=== PATIENT | female | born 1975 | race Caucasian/White ===

== ENCOUNTER 2024-04-07 09:35 | Day surgery (SDC) | payer OTHER ==
[~2024-04-07] VITALS: Ht 170.2 cm; Wt 98.5 kg
[2024-04-07] VITALS (16 sets, daily range): BP systolic 91–143; BP diastolic 64–97
[~2024-04-07 09:35] MED LIST: ERGO400 PO; GABA400 PO; LISI20 PO; Lactated Ringer's 1,000 ML IV SCH; MELATONIN5 M1 PO; Vitamin B Comple1 EA PO
[2024-04-07] MEDS ORDERED: propofoL 40 ML IV ONE (10:00)
--- NOTE | 2024-04-07 10:08 | NUR ---
04/07/24 Devika Garland CONFIRMED AND REVIEWED H&P, MEDCICATIONS, ALLERGIES, MEDICAL HISTORY, RESPIRATORY HISTORY, VITAL SIGNS, 3-LEAD EKG, CONSENTS, AND PHYSICIAN ORDERS. PATIENT CONFIRMS NPO STATUS AND AGREES WITH SCHEDULED PROCEDURE. MONITOR INTACT WITH CONTINUOUS PULSE OXIMETRY, CAPNOGRAPHY, 3-LEAD EKG, INTERMITTENT BP. SUPPLEMENTAL O2 TO BE TITRATED THROUGHOUT PROCEDURE TO MAINTAIN O2 SATURATION ABOVE 90%. PATIENT DETERMINED TO BE ASA APPROPRIATE FOR PROPOFOL SEDATION PRIOR TO START OF PROCEDURE BY DR. FRAZIER
--- NOTE | 2024-04-07 11:01 | NUR ---
Discharge instructions reviewed with patient. Patient verbalizes understanding. Copy given to patient to take home. Patient States Post-Procedure ride home has been arranged. Discharged via wheelchair to private car for ride home.
== END 2024-04-07 11:03 | disposition home or self-care (01) ==
LOC: ORSCMMR 09:35 → ORD 10:30 → ORSCMMR 11:03
PROVIDERS: Internal Medicine Gastroenterology
PROC: 0DBN8ZX Excision of Sigmoid Colon, Via Natural or Artificial Opening Endoscopic, Diagnostic (ICD-10-PCS; principal; 2024-04-07 10:30)
DX: Z12.11 Encounter for screening for malignant neoplasm of colon (principal); D12.5 Benign neoplasm of sigmoid colon; I10 Essential (primary) hypertension; Z79.899 Other long term (current) drug therapy
CPT/HCPCS: 88305; J2704; J7120

== ENCOUNTER → 2024-12-02 | Outpatient (CLI) | payer OTHER ==
[~2024-12-02] MED LIST changes: -Lactated Ringer's 1,000 ML IV SCH
== END ==
LOC: LAB SHORT 18:46 → LAB 18:46
PROVIDERS: Obstetrics & Gynecology
DX: Z01.419 Encounter for gynecological examination (general) (routine) without abnormal findings (principal)
CPT/HCPCS: 87624; G0145